=== PATIENT | male | born 1970 | race Caucasian/White ===

== ENCOUNTER 2023-01-10 18:26 | Emergency (ER) | payer OTHER ==
[~2023-01-10] VITALS: Ht 177.8 cm; Wt 121.2 kg
[2023-01-10 18:56] VITALS: BP 113/86
--- NOTE | 2023-01-10 20:00 | NUR ---
pt is resting quietly on gurney, waiting to be evaluated by provider, c/o left thumb pain, swelling, xray done, waiting for results
== END 2023-01-10 20:56 | disposition home or self-care (01) ==
LOC: ER 18:27
DX: S69.92XA Unspecified injury of left wrist, hand and finger(s), initial encounter (principal); V89.2XXA Person injured in unspecified motor-vehicle accident, traffic, initial encounter; Y93.89 Activity, other specified; Y92.89 Other specified places as the place of occurrence of the external cause; Y99.8 Other external cause status
CPT/HCPCS: 29125; 73140; 99283